=== PATIENT | male | born 1995 | race African-American/Black ===

== ENCOUNTER 2024-04-30 13:39 | Emergency (ER) | payer MEDICAID, OTHER ==
[~2024-04-30] VITALS: Ht 185.4 cm; Wt 100.0 kg
[2024-04-30 15:58] VITALS: BP 124/78; PULSE 90; RESP 18; TEMP 98.5; O2SAT 97
[2024-04-30] MEDS ORDERED: ERY05OO OP (16:24)
== END 2024-04-30 16:43 | disposition home or self-care (01) ==
LOC: ER 13:39
DX: H57.9 Unspecified disorder of eye and adnexa (principal)